=== PATIENT | male | born 1965 | race Caucasian/White ===

== ENCOUNTER 2016-05-12 19:04 | Observation (INO) | payer OTHER ==
[~2016-05-12] VITALS: Ht 180.3 cm; Wt 88.3 kg
[~2016-05-12 19:04] MED LIST: ADVAIR 250/501 DISK IH; ANDRODERM1 EACH TD; BACTROBAN NASAL1 G1 BOTH NARES; CELECOXIB200 MG PO; CLARINEX5 MG PO; DEXILANT60 MG PO; DOCUSATE SODIU100 MG PO; ENDOCET 5-3251 EACH PO; HYDROCODON-ACE1 EA11 PO; IRON325 MG PO; LOVENOX40 MG/0.4 SC; PREVACID30 MG PO; PULMICORT FLE180 MCG IH; QNASL8.7 GM BOTH NARES; SINGULAIR10 MG PO; SKELAXIN800 MG PO; TRAMADOL HCL50 MG PO; TRICOR145 MG PO; TYLENOL PM1 CAPLET PO
[2016-05-12 20:37] LABS: TROP-I INTERPRETATION NEGATIVE; TROPONIN-I < 0.01 ng/mL (0.0-0.30)
[2016-05-12] MEDS ORDERED: CIALIS5 MG PO (20:51)
[2016-05-12] MEDS ORDERED: DEXILANT60 MG PO (20:51)
[2016-05-12] MEDS ORDERED: ALLEGRA ALLERG180 MG PO (20:51)
[2016-05-12] MEDS ORDERED: PULMICORT FLE180 MCG IH (20:51)
[2016-05-12] MEDS ORDERED: QNASL8.7 GM BOTH NARES (20:52)
[2016-05-12] MEDS ORDERED: ANDRODERM1 EAC1 TD (20:52)
[2016-05-12] MEDS ORDERED: FISH OIL 1,0001 EAC7 PO (22:43)
[2016-05-12] MEDS ORDERED: LORAZEPAM0.5 MG PO (22:43)
[2016-05-12] MEDS ORDERED: ONE DAILY TABL1 EAC1 PO (22:43)
[2016-05-12] MEDS ORDERED: ATIVAN1 MG PO (22:43)
[2016-05-12 23:52] LABS: EOSINOPHIL COUNT 0.1 K/uL (0-0.3); HEMATOCRIT 43.4 % (38.0-50.0); IMMATURE GRANULOCYTE (%) 0.1 % (0.0-0.7); IMMATURE GRANULOCYTE COUNT 0.1 K/uL; LYMPHOCYTE COUNT 2.3 K/uL (1.0-2.8); MCH 30.2 PG (29.0-34.0); MCHC 34.8 G/DL (30.0-36.0); MCV 86.8 FL (86-99); MEAN PLAT.VOLUME 9.4 uM^3 (9.0-12.4); MONOCYTE (%) 8.9 % (3-12); MONOCYTE COUNT 0.7 K/uL (0-0.8); NEUTROPHIL (%) 62.2 % (45-76); NEUTROPHIL COUNT 5.1 K/uL (1.8-6.4); PLATELET COUNT 129 K/uL (156-360); RBC DIS.WIDTH-CV 12.7 % (11.8-14.6); RBC DIS.WIDTH-SD 39.4 % (39-53)
[2016-05-12 23:53] LABS: WHITE BLOOD COUNT 8.2 K/uL (4.1-10.2)
[2016-05-13 00:04] LABS: CHLORIDE 110 mEq/L (99-109); POTASSIUM 3.8 mEq/L (3.7-5.4); SODIUM 142 mEq/L (136-147)
[2016-05-13 00:05] LABS: GLUCOSE 91 mg/dL (70-99)
[2016-05-13 00:07] LABS: ANION GAP 9 MEQ/L (2-14)
[2016-05-13 00:09] LABS: GFR ESTIMATE (CALCULATED) > 59 mL/min/
[2016-05-13 00:10] LABS: UREA NITROGEN (BUN) 17 mg/dL (9-23)
[2016-05-13 00:16] LABS: TROP-I INTERPRETATION NEGATIVE; TROPONIN-I < 0.01 ng/mL (0.0-0.30)
[2016-05-13 01:15] VITALS: BP 146/71
[2016-05-13 03:50] VITALS: BP 128/68
[2016-05-13 07:44] LABS: TROP-I INTERPRETATION NEGATIVE; TROPONIN-I < 0.01 ng/mL (0.0-0.30)
[2016-05-13] MEDS ORDERED: RANITIDINE HCL150 M1 PO (07:51)
[2016-05-13 08:15] VITALS: BP 138/77
[2016-05-13 10:29] LABS: ANION GAP 9 MEQ/L (2-14); CHLORIDE 109 MEQ/L (99-109); POTASSIUM 3.9 MEQ/L (3.7-5.4); SAMPLE HEMOLYSIS CHECK 0; SAMPLE ICTERIC CHECK 0; SAMPLE LIPEMIA CHECK 0; SODIUM 142 MEQ/L (136-147); TOTAL BILIRUBIN 1.3 MG/DL (0.0-1.0)
[2016-05-13 10:34] LABS: ALKALINE PHOSPHATASE 67 IU/L (3-129); GFR ESTIMATE (CALCULATED) > 59 mL/min/; GLUCOSE 91 mg/dL (70-99); UREA NITROGEN (BUN) 14 mg/dL (9-23)
== END 2016-05-13 11:44 | disposition home or self-care (01) ==
LOC: EME 19:04 → EDOF 23:27 → 5WEST 05-13 00:57
PROVIDERS: Emergency Medicine; Pediatrics; Physician Assistant
DX: R07.89 Other chest pain (principal); R06.09 Other forms of dyspnea; R10.13 Epigastric pain; D68.51 Activated protein C resistance; M54.9 Dorsalgia, unspecified; J98.6 Disorders of diaphragm; K21.9 Gastro-esophageal reflux disease without esophagitis; Z82.49 Family history of ischemic heart disease and other diseases of the circulatory system; Z81.8 Family history of other mental and behavioral disorders; Z96.649 Presence of unspecified artificial hip joint
CPT/HCPCS: 71275; 80048; 80053; 83605; 83690; 84484; 85025 91; 85027; 85651; 93005; 94640; 99281; 99285; G0378; J1650; J1885; J7030

== ENCOUNTER 2017-08-31 14:41 | Emergency (ER) | payer OTHER ==
[~2017-08-31] VITALS: Ht 182.9 cm; Wt 90.0 kg
[~2017-08-31 14:41] MED LIST changes: +ALLEGRA ALLERG180 MG PO; +ANDRODERM1 EAC1 TD; +ATIVAN1 MG PO; +CIALIS5 MG PO; +FISH OIL 1,0001 EAC7 PO; +LORAZEPAM0.5 MG PO; +ONE DAILY TABL1 EAC1 PO; +RANITIDINE HCL150 M1 PO
[2017-08-31 15:28] LABS: HEMATOCRIT 43.4 % (38.0-50.0); HEMOGLOBIN 15.2 G/DL (12.5-16.6); MCV 85.6 FL (86-99); PLATELET COUNT 155 K/uL (156-360); RBC DIS.WIDTH-CV 12.9 % (11.8-14.6); RBC DIS.WIDTH-SD 39.7 % (39-53); RED BLOOD COUNT 5.07 M/uL (4.00-5.50); WHITE BLOOD COUNT 7.2 K/uL (4.1-10.2)
[2017-08-31 15:38] LABS: CHLORIDE 105 mEq/L (99-109); POTASSIUM 3.6 mEq/L (3.7-5.4); SODIUM 140 mEq/L (136-147)
[2017-08-31 15:39] LABS: GLUCOSE 104 mg/dL (70-99)
[2017-08-31 15:43] LABS: CREATININE 1.1 mg/dL (0.6-1.3); GFR ESTIMATE (CALCULATED) > 59 mL/min/ (58.99-99999)
[2017-08-31 15:44] LABS: UREA NITROGEN (BUN) 17 mg/dL (9-23)
[2017-08-31 15:51] LABS: TROP-I INTERPRETATION NEGATIVE; TROPONIN-I < 0.01 ng/mL (0.0-0.30)
[2017-08-31] MEDS ORDERED: MECLIZINE HCL25 MG PO (16:54)
[2017-08-31 17:14] VITALS: BP 127/75
== END 2017-08-31 17:16 | disposition home or self-care (01) ==
LOC: EME 14:41
PROVIDERS: Emergency Medicine
DX: R42 Dizziness and giddiness (principal); I49.3 Ventricular premature depolarization; I45.4 Nonspecific intraventricular block; K21.9 Gastro-esophageal reflux disease without esophagitis; E78.5 Hyperlipidemia, unspecified; J45.909 Unspecified asthma, uncomplicated
CPT/HCPCS: 70450; 70551; 80048; 84484; 85027; 93005; 99281; 99284; J2060; J2405; J2765; J7030